=== PATIENT | male | born 1990 | race African-American/Black ===

== ENCOUNTER 2016-06-09 07:36 | Emergency (ER) | payer MEDICAID ==
[~2016-06-09] VITALS: Ht 185.4 cm; Wt 103.2 kg
[2016-06-09 07:50] VITALS: BP 112/79
[2016-06-09 08:30] LABS: Urine RBC None Seen /hpf (0 - 3)
[2016-06-09 08:45] LABS: Urine Bilirubin Negative (Negative); Urine Blood Negative /uL (Negative); Urine Color Yellow (Yellow); Urine Glucose Normal (Normal); Urine Ketone Negative (Negative); Urine Mucus FEW (None Seen); Urine Nitrite Negative (Negative); Urine Squamous Epithelial Cell FEW /hpf (<5); Urine pH 5.5 (5.0-8.0)
== END 2016-06-09 09:24 | disposition home or self-care (01) ==
LOC: ER 07:36
DX: N39.0 Urinary tract infection, site not specified (principal)
CPT/HCPCS: 81001